=== PATIENT | female | born 1945 | race Caucasian/White ===

== ENCOUNTER 2024-10-03 16:46 | Inpatient (IN) | payer BC, OTHER ==
[~2024-10-03] VITALS: Ht 152.4 cm; Wt 42.5 kg
[~2024-10-03 16:46] MED LIST: ALEN70TA74 PO; HYDR25TA4 PO; LEVO88TA4 PO
--- NOTE | 2024-10-03 17:29 | ED.PDOC ---
History of Present Illness HPI Comments 79-year-old female presents via EMS with complaint of generalized weakness, today. Per EMS report, friends of the patient call on her behalf after finding her at her place of residence, endorsing on feeling weak and being unable to get up and walk, lately, in addition to be without food for the past 2 days. Patient was report to normally ambulatory. At time of assessment patient is still endorsing on weakness symptom in addition to having a delay response upon questioning. Patient has no reported urinary symptoms, fever, chills, shortness a breath, cough, or other associated symptoms or modifiers at this time. Vital signs were stable on arrival. 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 Past Medical History PAST MEDICAL HISTORY: Denies Surgical History: Denies all surgeries DISTRIBUTION CENTER MANAGER History: No Pertinent DISTRIBUTION CENTER MANAGER History Social History Smoker: Non-Smoker Alcohol: Denies ETOH Use Drugs: Denies Drug Use Lives In: Home Constitutional: reports: fatigue, malaise, weakness; denies: chills, diaphoresis, fever, sweats, others EENTM: denies: blurred vision, double vision, ear bleeding, ear discharge, ear drainage, ear pain, ear ringing, eye pain, eye redness, hearing loss, mouth pain, mouth swelling, nasal discharge, nose bleeding, nose congestion, nose pain, photophobia, tearing, throat pain, throat swelling, voice changes, others Respiratory: denies: cough, hemoptysis, orthopnea, SOB at rest, shortness of breath, SOB with excertion, stridor, wheezing, others Cardiovascular: denies: chest pain, dizzy spells, diaphoresis, Dyspnea on exertion, edema, irregular heart beat, left arm pain, lightheadedness, palpitations, PND, syncope, others Gastrointestinal: denies: abdomen distended, abdominal pain, blood streaked bowels, constipated, diarrhea, dysphagia, difficulty swallowing, hematemesis, melena, nausea, poor appetite, poor fluid intake, rectal bleeding, rectal pain, vomiting, others Genitourinary: denies: abnormal vagina bleeding, burning, dyspareunia, dysuria, flank pain, frequency, hematuria, incontinence, pain, , vagina discharge, urgency, others Neurological: reports: dizziness, weakness; denies: fainting, headache, left sided numbness, left sided weakness, numbness, paresthesia, pre-existing deficit, right sided numbness, right sided weakness, seizure, speech problems, tingling, tremors, others Musculoskeletal: denies: back pain, gout, joint pain, joint swelling, muscle pain, muscle stiffness, neck pain, others Integumetry: denies: bruises, change in color, change in hair/nails, dryness, laceration, lesions, lumps, rash, wounds, others Allergic/Immunocompromised: denies: Difficulty Healing, Frequent Infections, Hives, Itching, others Hematologic/Lymphatic: denies: anemia, blood clots, easy bleeding, easy bruising, swollen glands, others Endocrine: denies: excessive hunger, excessive sweating, excessive thirst, excessive urination, flushing, intolerance to cold, intolerance to heat, unexplained weight gain, unexplained weight loss, others Psychiatric: denies: anxiety, bipolar disorder, depression, hopeless, panic disorder, schizophrenia, sleepless, suicidal, others All Other Systems: Reviewed and Negative (Negative unless otherwise stated above or and HPI) Physical Exam General Appearance: Moderate Distress (Patient presents as a moderately ill 79-year-old female.), Normal HEENT: Normal ENT Inspection, Pharynx Normal, TMs Normal Neck: Full Range of Motion, Non-Tender, Normal, Normal Inspection Respiratory: Chest Non-Tender, Lungs Clear, No Accessory Muscle Use, No Respiratory Distress, Normal Breath Sounds Cardiovascular: No Edema, No JVD, No Murmur, No Gallop, Normal Peripheral Pulses, Regular Rate/Rhythm Breast Exam: Deferred Gastrointestinal: No Organomegaly, Non Tender, No Pulsatile Mass, Normal Bowel Sounds, Soft Genitalia: Deferred Pelvic: Deferred Rectal: Deferred Extremities: Other (Patient was unable to ambulate. No edema noted. No signs of trauma.) Neurologic: Disoriented, No Motor Deficits, No Sensory Deficits Cerebellar Function: NOT DONE Reflexes: NOT DONE Skin: Dry, Normal Color, Warm Lymphatic: No Adenopathy Was a procedure done? Was a procedure done?: No EKG EKG : Pulse Rate (adult): 84 [place]: Normal Cardiac Rhythm: NSR Block: None Hypertrophy: None ST: Normal Differential Dx Considerations may include: Anemia, electrolyte imbalance, dehydration, malnutrition, viral syndrome, degenerative disc disease X-Ray, Labs, Meds, VS Vital Signs Date Time Temp Pulse Resp B/P (MAP) Pulse Ox O2 Delivery O2 Flow Rate FiO2 10/03/24 21:00 94 16 108/58 (75) 96 10/03/24 19:30 Room Air* 0 21 10/03/24 19:30 97.7 86 16 104/68 (80) 96 97.7 10/03/24 18:00 97 17 102/49 (66) 98 10/03/24 17:30 88 21 98 Room Air* 0 21 10/03/24 17:29 84 10/03/24 17:25 97.8 88 21 113/58 (76) 97 97.8 10/03/24 17:01 97.7 98 16 122/65 (84) 98 10/03/24 16:59 84 Lab Test 10/03/24 21:26 10/03/24 20:34 10/03/24 18:53 10/03/24 17:31 Range/Units Urine Color Yellow Yellow Urine Clarity Clear Clear Urine pH 5.5 5.0-9.0 Urine Specific [place] 1.030 1.001-1.035 Urine Protein 1+ H Negative Urine Ketones 2+ H Negative Urine Blood Negative Negative /uL Urine Nitrite Negative Negative Urine Bilirubin Negative Negative Urine Urobilinogen Normal Negative mg/dL Urine Leukocyte Esterase Negative Negative /uL Urine RBC 1 0 - 4 /hpf Urine WBC 2 0 - 5 /hpf Urine Squamous Epithelial Cells Few <5 /hpf Urine Bacteria None seen None Seen /hpf Urine Mucus Few None Seen Urine Glucose 3+ H Normal mg/dL Troponin I High Sensitivity 47 *H 43 *H 43 *H </=34 ng/L White Blood Count 10.2 4.4-10.8 10^3/uL Red Blood Count 4.13 4.0-5.20 10^6/uL Hemoglobin 12.6 12.2-16.2 g/dL Hematocrit 37.6 36.0-46.0 % Mean Corpuscular Volume 90.9 80.0-100.0 fL Mean Corpuscular Hemoglobin 30.4 28.0-32.0 pg Mean Corpuscular Hemoglobin Concent 33.5 32.0-36.0 g/dL Red Cell Distribution Width 13.9 11.8-14.3 % Platelet Count 293 140-450 10^3/uL Mean Platelet Volume 7.2 6.9-10.8 fL Neutrophils (%) (Auto) 86.7 H 37.0-80.0 % Lymphocytes (%) (Auto) 7.5 L 10.0-50.0 % Monocytes (%) (Auto) 5.6 0.0-12.0 % Eosinophils (%) (Auto) 0.0 0.0-7.0 % Basophils (%) (Auto) 0.2 0.0-2.0 % Neutrophils # (Auto) 8.8 H 1.6-8.6 10 ^3/uL Lymphocytes # (Auto) 0.8 0.4-5.4 10 ^3/uL Monocytes # (Auto) 0.6 0-1.3 10 ^3/uL Eosinophils # (Auto) 0 0-0.8 10 ^3/uL Basophils # (Auto) 0 0-0.2 10 ^3/uL Nucleated Red Blood Cells 0.0 % Prothrombin Time 10.9 9.3-11.8 sec Prothrombin Time INR 1.03 0.9-1.15 Activated Partial Thromboplast Time 26.4 24.5-34.5 SEC D-Dimer, Quantitative 0.57 H 0.0-0.49 mg/L FEU Sodium Level 144 136-145 mmol/L Potassium Level 3.5 3.5-5.1 mmol/L Chloride Level 107 98-107 mmol/L Carbon Dioxide Level 27 20-31 mmol/L Anion Gap 10 5-15 Blood Urea Nitrogen 28 H 9-23 mg/dL Creatinine 0.71 0.550-1.02 mg/dL Glomerular Filtration Rate Calc 87 >90 mL/min BUN/Creatinine Ratio 39.4 H 10.0-20.0 Serum Glucose 90 74-106 mg/dL Calcium Level 10.7 H 8.7-10.4 mg/dL Magnesium Level 1.9 1.6-2.6 mg/dL Total Bilirubin 0.6 0.2-1.0 mg/dL Aspartate Amino Transferase (AST) 143 H 13-40 U/L Alanine Aminotransferase (ALT) 95 H 7-40 U/L Alkaline Phosphatase 81 46-116 U/L B-Type Natriuretic Peptide 88.68 0-100 pg/mL Total Protein 5.8 5.7-8.2 g/dL Albumin 3.9 3.2-4.8 g/dL Current Medications Medications (Trade) Dose Ordered Sig/Hayley Route Start Time Stop Time Status Last Admin Sodium Chloride 1,000 ml @ 150 mls/hr Q6H40M ONCE IV 10/03/24 17:15 10/03/24 23:54 10/03/24 17:49 X-Ray, Labs, Meds, VS Comment All studies performed the ED were evaluated by me personally. Imaging studies were unremarkable for any consolidation or intrapulmonary concerns. Laboratories were remarkable for an elevated troponin and EKG revealed a sinus rhythm with a rate of 84, right atrial enlargement, incomplete right bundle- branch block and repolarization abnormalities suggestive of ischemia in the lateral leads. [place] interval of 147 and a QT interval of 404. This patient will be admitted for acute coronary syndrome management and lower acquire a cardiac consultation tomorrow. Time of 1ST Reevaluation: 23:06 Reevaluation 1ST: Unchanged Consultation: PCP Patient Education/Counseling: Diagnosis, Treatment Family Education/Counseling: Diagnosis, Treatment, No Family Present Departure 1 Departure Time of Disposition: 23:07 Impression: Primary Impression: Acute coronary syndrome Additional Impressions: Generalized weakness Risk for falls Disposition: ADMITTED INPATIENT Condition: Stable Discharged With: Self Critical Care Note Critical Care Time?: No Stability Stability form required: No Heart Score Heart Score: Heart Score Response (Comments) Value History Slightly Suspicious 0 EKG Repolarization Disturb 1 Age >65 2 Risk Factors No known risk factors 0 Troponin 1-2 x's Normal limit 1 Total 4 I personally scribed for VAIBHAV LAW PAC ([email or web address]) on 10/03/24 at 17:28. Electronically submitted by Jewel Bianchi ([email or web address]). VAIBHAV LAW PAC Oct 03, 2024 17:28
[2024-10-03 17:30] VITALS: PULSE 88; RESP 21; O2SAT 98
--- NOTE | 2024-10-03 17:45 | DVH ---
CHEST RADIOGRAPH Indication: Shortness of breath Technique: Single frontal view of the chest was obtained Comparison: None FINDINGS: Lines and Tubes: None Lungs: Hyperinflation Pleura: No effusion. No pneumothorax. Cardiomediastinal contours: Unremarkable Bones: No acute osseous abnormality. IMPRESSION: 1. No acute cardiopulmonary disease. 2. Hyperinflation
[2024-10-03] MEDS: SODIUM CHLORIDE 0.9% 1,000 ML IV ONE (17:49)
[2024-10-03 18:05] LABS: Basophils # (auto) 0 10 ^3/uL (0-0.2); Basophils % (auto) 0.2 % (0.0-2.0); Eosinophils # (auto) 0 10 ^3/uL (0-0.8); Hematocrit 37.6 % (36.0-46.0); Hemoglobin 12.6 g/dL (12.2-16.2); Lymphocytes # (auto) 0.8 10 ^3/uL (0.4-5.4); Lymphocytes % (auto) 7.5 % (10.0-50.0); Mean Corpuscular Hemoglobin 30.4 pg (28.0-32.0); Mean Corpuscular Hgb Conc. 33.5 g/dL (32.0-36.0); Mean Corpuscular Volume 90.9 fL (80.0-100.0); Monocytes # (auto) 0.6 10 ^3/uL (0-1.3); Monocytes % (auto) 5.6 % (0.0-12.0); Neutrophils # (auto) 8.8 10 ^3/uL (1.6-8.6); Neutrophils % (auto) 86.7 % (37.0-80.0); Platelet Count (auto) 293 10^3/uL (140-450); Red Blood Cells 4.13 10^6/uL (4.0-5.20); Red Cell Distribution Width 13.9 % (11.8-14.3); White Blood Cell 10.2 10^3/uL (4.4-10.8)
[2024-10-03 18:20] LABS: Albumin 3.9 g/dL (3.2-4.8); Alkaline Phosphatase 81 U/L (46-116); Anion Gap 10 (5-15); BUN/Creatinine Ratio 39.4 (10.0-20.0); Bilirubin, Total 0.6 mg/dL (0.2-1.0); Carbon Dioxide 27 mmol/L (20-31); Chloride 107 mmol/L (98-107); Glucose 90 mg/dL (74-106); INR 1.03 (0.9-1.15); Magnesium 1.9 mg/dL (1.6-2.6); Partial Thromboplastin Time 26.4 SEC (24.5-34.5); Prothrombin Time 10.9 sec (9.3-11.8); Sodium 144 mmol/L (136-145); Total Protein 5.8 g/dL (5.7-8.2)
[2024-10-03 18:24] LABS: Alanine Aminotransferase 95 U/L (7-40); Aspartate Aminotransferase 143 U/L (13-40); Blood Urea Nitrogen 28 mg/dL (9-23); Calcium 10.7 mg/dL (8.7-10.4); Potassium 3.5 mmol/L (3.5-5.1)
--- NOTE | 2024-10-03 20:51 | ECG ---
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
[2024-10-03 22:34] LABS: Urine Bacteria None Seen /hpf (None Seen)
[2024-10-03 22:44] LABS: Urine Blood Negative /uL (Negative); Urine Clarity Clear (Clear); Urine Color Yellow (Yellow); Urine Mucus FEW (None Seen); Urine Protein, UAD 1+ (Negative); Urine Squamous Epithelial Cell FEW /hpf (<5); Urine Urobilinogen Normal (Negative); Urine WBC 2 /hpf (0 - 5); Urine pH 5.5 (5.0-9.0)
[2024-10-04] MEDS ORDERED: ONDANSETRON HCL 4 MG/2 ML VIAL IV PRN (01:15)
[2024-10-04] MEDS ORDERED: ACETAMINOPHEN 325 MG TAB PO PRN (01:15)
[2024-10-04] MEDS ORDERED: DOCUSATE SOD 100 MG CAP PO PRN (01:15)
[2024-10-04] MEDS ORDERED: IBUPROFEN 600 MG TAB PO PRN (01:15)
[2024-10-04] MEDS ORDERED: HYDROcodone-ACET 5/325MG TAB PO PRN (01:15)
[2024-10-04] MEDS: ASPirin 81 mg TAB PO ONE (01:22)
--- NOTE | 2024-10-04 01:27 | DVHHP2 ---
History of Present Illness Reason for Visit: Generalized weakness History of Present Illness The patient is a 79-year-old female who denies past medical history presented to [facility] ED for evaluation of generalized weakness. As reported, patient's friend called EMS reporting change in patient's condition, unable to get up, walk, progressive weakness, getting worse that prompted this visit. Patient was seen and evaluated in the ED, laboratory data shows WBC 10.2, platelets 293, sodium 144, potassium 3.5, BUN 28, creatinine 0.71, GFR 87, glucose 90, AST 143, ALT 95, BNP 88.68, D-dimer 0.57, troponin 47. Head CT shows no acute intrathoracic abnormality. Patient was given aspirin 162 mg p.o. x1, please see medication orders section in the computer. On my assessment, patient denies chest pain, no headache, no dizziness, no diaphoresis, no shortness of breaths, no nausea, no vomiting, no fever, no chills. Patient was admitted for further evaluation and medical management. Past Medical History Denies past medical history Past Surgical History Denies all surgeries Family History Reviewed, noncontributory to the management of this case. Past Social History The patient lives at home, denies smoking, alcohol or illicit drugs abuse. Review of Systems Constitutional: Yes: Weakness, Malaise, Other (Fatigue); No: Fever, Chills, Sweats Eyes: No: Pain, Vision change, Conjunctivae inflammation, Eyelid inflammation, Other, Redness ENT: No: Ear pain, Ear discharge, Nose pain, Nose discharge, Nose congestion, Mouth pain, Mouth swelling, Throat pain, Throat swelling, Other Respiratory: No: Cough, Dry, Shortness of breath, SOB with excertion, Wheezing, Hemoptysis, Pleuritic Pain, Sputum, Wheezing, Other Cardiovascular: No: Chest Pain, Palpitations, Orthopnea, Paroxysmal Noc. Dyspnea, Edema, Lt Headedness, Other Gastrointestinal: No: Nausea, Vomiting, Abdominal Pain, Diarrhea, Constipation, Melena, Hematochezia, Other Genitourinary: No Dysuria, No Frequency, No Incontinence, No Hematuria, No Retention, No Other Musculoskeletal: No: other, neck pain, shoulder pain, arm pain, back pain, hand pain, leg pain, foot pain Skin: No: Rash, Lesions, Jaundice, Bruising, Other Neurological: Weakness, Other (Dizziness); No: Numbness, Incoordination, Change in speech, Confusion, Seizures Allergies: Coded Allergies: Amoxicillin (Verified Allergy, Unknown, 10/03/24) Penicillins (Verified Allergy, Unknown, 10/03/24) Sulfa Antibiotics (Verified Allergy, Unknown, 10/03/24) Medications Current Medications Medications Dose Ordered Sig/Hayley Route Start Time Stop Time Status Last Admin Dose Admin Ibuprofen 600 mg Q6HP PRN PO 10/04/24 01:15 UNV Aspirin 81 mg DAILY PO 10/04/24 10:00 Sodium Chloride 10 ml Q8HR IV 10/04/24 06:00 Acetaminophen/ Hydrocodone Bitart 1 tab Q4HP PRN PO 10/04/24 01:15 Ondansetron HCl 4 mg Q4HP PRN IV 10/04/24 01:15 Docusate Sodium 100 mg BIDPRN PRN PO 10/04/24 01:15 Acetaminophen 650 mg Q6HP PRN PO 10/04/24 01:15 Levothyroxine Sodium 88 mcg QAM@0600 PO 10/04/24 06:00 Exam Vital Signs Vital Signs Date Time Temp Pulse Resp B/P (MAP) Pulse Ox O2 Delivery O2 Flow Rate FiO2 10/03/24 23:00 91 14 112/46 (68) 96 10/03/24 19:30 Room Air* 0 21 10/03/24 19:30 97.7 97.7 General Appearance: Alert, Oriented X3, Cooperative, No acute distress HEENT: Atraumatic, PERRLA, EOMI, Mucous membr. moist/pink Respiratory: Clear to auscultation, Normal air movement Cardiovascular: Regular rate, Normal S1, Normal S2, No murmurs Abdominal: Normal bowel sounds, Soft, No tenderness, No hepatospenomegaly, No masses Extremities: No clubbing, No cyanosis, No edema, Normal pulses, No tenderness/swelling Skin: No rashes, No breakdown, No significant lesion Neuro: Normal speech, Normal tone, Sensation intact, Cranial nerves 3-12 NL, Reflexes 2+, Other (Generalized weakness) Psych/Mental Status: Mental status NL, Mood NL Labs/Xrays Labs Test 10/03/24 21:26 10/03/24 20:34 10/03/24 17:31 Range/Units Urine Color Yellow Yellow Urine Clarity Clear Clear Urine pH 5.5 5.0-9.0 Urine Specific [place] 1.030 1.001-1.035 Urine Protein 1+ H Negative Urine Ketones 2+ H Negative Urine Blood Negative Negative /uL Urine Nitrite Negative Negative Urine Bilirubin Negative Negative Urine Urobilinogen Normal Negative mg/dL Urine Leukocyte Esterase Negative Negative /uL Urine RBC 1 0 - 4 /hpf Urine WBC 2 0 - 5 /hpf Urine Squamous Epithelial Cells Few <5 /hpf Urine Bacteria None seen None Seen /hpf Urine Mucus Few None Seen Urine Glucose 3+ H Normal mg/dL Troponin I High Sensitivity 47 *H </=34 ng/L White Blood Count 10.2 4.4-10.8 10^3/uL Red Blood Count 4.13 4.0-5.20 10^6/uL Hemoglobin 12.6 12.2-16.2 g/dL Hematocrit 37.6 36.0-46.0 % Mean Corpuscular Volume 90.9 80.0-100.0 fL Mean Corpuscular Hemoglobin 30.4 28.0-32.0 pg Mean Corpuscular Hemoglobin Concent 33.5 32.0-36.0 g/dL Red Cell Distribution Width 13.9 11.8-14.3 % Platelet Count 293 140-450 10^3/uL Mean Platelet Volume 7.2 6.9-10.8 fL Neutrophils (%) (Auto) 86.7 H 37.0-80.0 % Lymphocytes (%) (Auto) 7.5 L 10.0-50.0 % Monocytes (%) (Auto) 5.6 0.0-12.0 % Eosinophils (%) (Auto) 0.0 0.0-7.0 % Basophils (%) (Auto) 0.2 0.0-2.0 % Neutrophils # (Auto) 8.8 H 1.6-8.6 10 ^3/uL Lymphocytes # (Auto) 0.8 0.4-5.4 10 ^3/uL Monocytes # (Auto) 0.6 0-1.3 10 ^3/uL Eosinophils # (Auto) 0 0-0.8 10 ^3/uL Basophils # (Auto) 0 0-0.2 10 ^3/uL Nucleated Red Blood Cells 0.0 % Prothrombin Time 10.9 9.3-11.8 sec Prothrombin Time INR 1.03 0.9-1.15 Activated Partial Thromboplast Time 26.4 24.5-34.5 SEC D-Dimer, Quantitative 0.57 H 0.0-0.49 mg/L FEU Sodium Level 144 136-145 mmol/L Potassium Level 3.5 3.5-5.1 mmol/L Chloride Level 107 98-107 mmol/L Carbon Dioxide Level 27 20-31 mmol/L Anion Gap 10 5-15 Blood Urea Nitrogen 28 H 9-23 mg/dL Creatinine 0.71 0.550-1.02 mg/dL Glomerular Filtration Rate Calc 87 >90 mL/min BUN/Creatinine Ratio 39.4 H 10.0-20.0 Serum Glucose 90 74-106 mg/dL Calcium Level 10.7 H 8.7-10.4 mg/dL Magnesium Level 1.9 1.6-2.6 mg/dL Total Bilirubin 0.6 0.2-1.0 mg/dL Aspartate Amino Transferase (AST) 143 H 13-40 U/L Alanine Aminotransferase (ALT) 95 H 7-40 U/L Alkaline Phosphatase 81 46-116 U/L B-Type Natriuretic Peptide 88.68 0-100 pg/mL Total Protein 5.8 5.7-8.2 g/dL Albumin 3.9 3.2-4.8 g/dL PATIENT: BRIAN DUMONT ACCT: [id number] UNIT: [id number] : 1945 LOC: [facility] ROOM / BED: [address] [place] [address] AGE / SEX: 79 / F ADM STATUS: ADM IN SERVICE 2 ORDERING PHYSICIAN: JUAN RAMON JENKINS DNP PROCEDURE(s): CX2CT - CHEST WITHOUT CONTRAST REASON: Elevated D-dimer ORDER NUMBER(s): [id number], ACCESSION NUMBER(s): [id number] Procedure: CT CHEST WITHOUT CONTRAST Reason for study/Clinical History: Elevated D-dimer Comparison Study: None available at time of dictation. Exam Date: 10/04/2024 01:32 AM TECHNIQUE: Multidetector CT of the chest was performed from the lung apices to the upper abdomen without the use of intravenous contract. Axial, coronal and sagittal multiplanar reformats were performed. Radiation Dose Information: CT Dose: CTDI volume is 4.6 mGy. Dose-length product is 186 mGy*cm The dose indicators for CT are the volume Computed Tomography (CT) Dose Index (CTDIvol) and the Dose Length Product (DLP), and are measured in units of mGy and mGy-cm, respectively. These indicators are not patient dose, but values generated from the CT scanner acquisition factors. The report includes radiation exposure data for exposures received during this examination. FINDINGS: Lower neck: Normal thyroid. Lungs: No focal consolidation, pleural effusion or pneumothorax. Heart/Vascular Structures: Normal heart size. No pericardial effusion. Lymph Nodes: No adenopathy Pleura: No pleural effusion or significant pneumothorax. Musculoskeletal: No acute osseous abnormality. Soft tissues: Normal. Upper abdomen: Limited portions of the upper abdomen are unremarkable. IMPRESSION: 1. No acute intrathoracic abnormality. ORDERING PHYSICIAN: VAIBHAV LAW PAC PROCEDURE(s): CXRP - CHEST PORTABLE REASON: Shortness of breath ORDER NUMBER(s): [id number], ACCESSION NUMBER(s): [id number] CHEST RADIOGRAPH Indication: Shortness of breath Technique: Single frontal view of the chest was obtained Comparison: None FINDINGS: Lines and Tubes: None Lungs: Hyperinflation Pleura: No effusion. No pneumothorax. Cardiomediastinal contours: Unremarkable Bones: No acute osseous abnormality. IMPRESSION: 1. No acute cardiopulmonary disease. 2. Hyperinflation Assessment/Plan Assessment/Plan Acute coronary syndrome Generalized weakness Risk for falls Elevated D-dimer Elevated liver enzymes Plan 1. Admit to telemetry unit 2. Breathing treatment 3. Pain control management 4. Management of fluids and electrolytes 5. Consultation for hospitalist 6. Diagnostic tests chest x-ray 7. DVT prophylaxis-on aspirin 8. Repeat labs CBC, CMP in a.m. 9. Continue with current medical management 10. Treatment plan discussed with patient and RN. Patient verbalized understanding. Plan discussed with: Patient, Other (RN) My Orders Orders - JUAN RAMON JENKINS DNP Procedure Category Date Status Time Complete Blood Count LAB 10/04/24 Logged 04:00 Comprehensive LAB 10/04/24 Logged Metabolic Panel 04:00 Ibuprofen Tablet PHA 10/04/24 Pending (Motrin Tablet) 01:15 Aspirin Tablet PHA 10/04/24 In Process 10:[address] 10/04/24 Logged 01:03 Allergies JIHAN 10/04/24 In Process 01:03 Code Status CODE 10/04/24 Transmitted 01:03 Sodium Chloride Lock PHA 10/04/24 In Process (Saline Lock Ns) 06:00 Oxygen Per Hour RT 10/04/24 Transmitted 01:03 Hydrocodone-Acet PHA 10/04/24 In Process 5/325mg Tab ([place] 01:15 Ondansetron Hcl PHA 10/04/24 In Process (Zofran) 01:15 Docusate Sodium PHA 10/04/24 In Process Capsule (Colace 01:15 Fall Risk Precautions JIHAN 10/04/[address] 01:03 Complete Blood Count LAB 10/05/24 Verified 04:00 Comprehensive LAB 10/05/24 Verified Metabolic Panel 04:00 Cardiac DIET 10/04/24 Transmitted Diet-2gna,Lofat,Lochol Breakfast Condition: Serious JIHAN 10/04/24 In Process 01:03 Acetaminophen Tablet PHA 10/04/24 In Process (Tylenol Tablet) 01:15 Sequential JIHAN 10/04/24 In Process Compression Device Thyroid Stimulating LAB 10/04/24 Logged Hormone 01:03 Levothyroxine Tablet PHA 10/04/24 In Process (Synthroid Tablet) 06:00 Admit ADMIT 10/04/24 Transmitted 01:25 Nitroglycerin PHA 10/04/24 Transmitted Sublingual (Ntrostat 01:30 Morphine Sulfate PHA 10/04/24 Transmitted Injection 01:30 Notify Of Changes JIHAN 10/04/24 Transmitted From Base 01:25 Post Acute Care Nurse Practitioner For [facility] 10/04/24 Transmitted 24 Hours 01:25 Emergency Dysrhythmia JIHAN 10/04/24 Transmitted Protocol 01:25 Rhythm Strips Once JIHAN 10/04/24 Transmitted Every Shift 01:25 Oxygen By Nasal RT 10/04/24 Transmitted Cannula 01:25 Problem List: (1) Acute coronary syndrome (2) Generalized weakness (3) Risk for falls (4) Elevated d-dimer (5) Elevated liver enzymes Date of Service: Oct 04, 2024 Billing Provider: JUAN RAMON JENKINS DNP Common Visit Codes: [id number] INP/OBS CARE (HIGH) JUAN RAMON JENKINS DNP Oct 04, 2024 01:27
[2024-10-04] MEDS ORDERED: NITROGLYCERIN 0.4 MG SL TAB SL PRN (01:30)
[2024-10-04] MEDS ORDERED: MORPHINE SULFATE INJ 2 MG/ml SYRG IV PRN (01:30)
--- NOTE | 2024-10-04 01:52 | DVH ---
Procedure: CT CHEST WITHOUT CONTRAST Reason for study/Clinical History: Elevated D-dimer Comparison Study: None available at time of dictation. Exam Date: 10/04/2024 01:32 AM TECHNIQUE: Multidetector CT of the chest was performed from the lung apices to the upper abdomen with out the use of intravenous contract. Axial, coronal and sagittal multiplanar reformats were performed . Radiation Dose Information: CT Dose: CTDI volume is 4.6 mGy. Dose-length product is 186 mGy*cm The dose indicators for CT are the volume Computed Tomography (CT) Dose Index (CTDIvol) and the Dose Length Product (DLP), and are measured in units of mGy and mGy-cm, respectively. These indicators are not patient dose, but values generated from the CT scanner acquisition factors. The report includes radiation exposure data for exposures received during this examination. FINDINGS: Lower neck: Normal thyroid. Lungs: No focal consolidation, pleural effusion or pneumothorax. Heart/Vascular Structures: Normal heart size. No pericardial effusion. Lymph Nodes: No adenopathy Pleura: No pleural effusion or significant pneumothorax. Musculoskeletal: No acute osseous abnormality. Soft tissues: Normal. Upper abdomen: Limited portions of the upper abdomen are unremarkable. IMPRESSION: 1. No acute intrathoracic abnormality. Radiation optimization: All CT scans at this facility use at least one of these dose optimization vivienne hniques: automated exposure control mA and/or kV adjustment per patient size (includes targeted exam s where dose is matched to clinical indication) or iterative reconstruction.
[2024-10-04] MEDS: SODIUM CHLOR 0.9% PF (SALINE LOCK) 10ML VIAL/SYR IV SCH (05:48)
[2024-10-04] MEDS: LEVOTHYROXINE SODIUM 88 MCG TAB PO SCH (05:48)
[2024-10-04 06:22] LABS: Basophils # (auto) 0 10 ^3/uL (0-0.2); Basophils % (auto) 0.5 % (0.0-2.0); Eosinophils # (auto) 0 10 ^3/uL (0-0.8); Eosinophils % (auto) 0.1 % (0.0-7.0); Hematocrit 36.4 % (36.0-46.0); Hemoglobin 12.1 g/dL (12.2-16.2); Lymphocytes # (auto) 0.7 10 ^3/uL (0.4-5.4); Lymphocytes % (auto) 8.3 % (10.0-50.0); Mean Corpuscular Hemoglobin 30.6 pg (28.0-32.0); Mean Corpuscular Hgb Conc. 33.2 g/dL (32.0-36.0); Mean Corpuscular Volume 92.3 fL (80.0-100.0); Monocytes # (auto) 0.3 10 ^3/uL (0-1.3); Monocytes % (auto) 3.8 % (0.0-12.0); Neutrophils # (auto) 7.7 10 ^3/uL (1.6-8.6); Neutrophils % (auto) 87.3 % (37.0-80.0); Platelet Count (auto) 274 10^3/uL (140-450); Red Blood Cells 3.94 10^6/uL (4.0-5.20); Red Cell Distribution Width 13.9 % (11.8-14.3); White Blood Cell 8.8 10^3/uL (4.4-10.8)
[2024-10-04 06:46] LABS: Albumin 3.7 g/dL (3.2-4.8); Alkaline Phosphatase 75 U/L (46-116); Anion Gap 14 (5-15); BUN/Creatinine Ratio 38.6 (10.0-20.0); Calcium 9.9 mg/dL (8.7-10.4); Carbon Dioxide 22 mmol/L (20-31)
[2024-10-04 06:47] LABS: Bilirubin, Total 0.7 mg/dL (0.2-1.0); Total Protein 5.8 g/dL (5.7-8.2)
[2024-10-04 07:02] LABS: Alanine Aminotransferase 88 U/L (7-40); Aspartate Aminotransferase 126 U/L (13-40); Blood Urea Nitrogen 27 mg/dL (9-23); Chloride 110 mmol/L (98-107); Glucose 56 mg/dL (74-106); Potassium 3.3 mmol/L (3.5-5.1); Sodium 146 mmol/L (136-145)
[2024-10-04 07:32] VITALS: PULSE 91; O2SAT 97
[2024-10-04] MEDS ORDERED: DEXTROSE (50%) 50ML SYRG IV PRN (10:15)
[2024-10-04] MEDS: ASPirin 81 mg TAB PO SCH (10:51)
--- NOTE | 2024-10-04 11:11 | DVH ---
INDICATION: LFTs high, RUQ U/S to eval liver TECHNIQUE: Multiple real-time sonographic images were obtained of the right upper quadrant. COMPARISON: None FINDINGS: The liver demonstrates homogeneous echotexture without focal mass lesions. The liver measu res 10.2 cm. There is no intrahepatic or extrahepatic ductal dilatation. The common duct is not visualized. Cholelithiasis. The gallbladder wall measures 0.1 cm and is within normal limits. The right kidney measures 9.4 cm. The right kidney is normal in contour, size, and shape. The echog enicity is normal. There is no hydronephrosis. Mild right renal pelvic fullness. The pancreas is not well visualized due to overlying bowel gas. IMPRESSION: Cholelithiasis. Mild right renal pelvic fullness; nonspecific.
[2024-10-04] MEDS: ACCU-CHEK COMFORT CURVE STRIP VI SCH (11:50)
[2024-10-04] MEDS: LEVOTHYROXINE SODIUM 88 MCG TAB PO ONE (11:58)
[2024-10-04] MEDS: LACTATED RINGER'S 400 ML IV ONE (12:08)
--- NOTE | 2024-10-04 13:19 | DVH ---
EXAM: CT HEAD WITHOUT CONTRAST HISTORY: head trauma, weakness COMPARISON: CT CHEST WITHOUT CONTRAST on DOS: 10/04/24 TECHNIQUE: Axial images were obtained and reformatted in coronal and sagittal planes. All CT scans at this medical facility are performed using dose modulation techniques as appropriate t o a performed exam including the following: Automated exposure control was utilized; adjustment of th e MA and/or KV according to patient size; and use of iterative reconstruction technique. CT Dose: CTDI volume is 53.92 mGy. Dose-length product is 1081.91 mGy*cm FINDINGS: Supratentorial Region: No evidence for large acute territorial ischemia. No intracranial hemorrhage is noted. A 0.9 cm focus of cystic encephalomalacia noted in the right lentiform nucleus Posterior Fossa: No acute abnormality. Brainstem: Unremarkable. Sellar/Suprasellar Region: Unremarkable. Ventricles, Cisterns, Sulci: Mildly prominent reflecting volume loss. Orbits: Unremarkable. Paranasal Sinuses: Unremarkable. Mastoid Air Cells: Unremarkable. Vasculature: Intracranial arterial calcified plaque formation noted. Bones/Soft Tissues: No acute abnormality. Other: None. IMPRESSION: 1. No CT evidence of acute intracranial abnormality.
[2024-10-04 13:41] LABS: COVID19 ANTIGEN SOFIA FIA NEGATIVE (NEGATIVE)
[2024-10-04 13:44] LABS: Rapid Influenza A Negative (Negative); Rapid Influenza B Negative (Negative)
[2024-10-04 13:45] VITALS: BP 96/48; PULSE 83; RESP 16; TEMP 97.5; O2SAT 96
--- NOTE | 2024-10-04 16:19 | DVHPN2 ---
Subjective 10/04-patient doing better, improving. Patient did also have a fall, she has a wound on left frontal cranium region. She declines any loss of consciousness. Unclear cause of fall. Reviewed: H&P Changes from previous H/P or p: No Changes General: Per HPI Objective Vitals Vital Signs Date Time Temp Pulse Resp B/P (MAP) Pulse Ox O2 Delivery O2 Flow Rate FiO2 10/04/24 13:45 97.5 83 16 96/48 (64) 96 97.5 10/04/24 07:32 Room Air* 0 31 21 Intake/Output Intake and Output 10/04/24 07:00 Intake Total 600 ml Balance 600 ml Intake IV Total 600 ml Exam GEN: Severely cachectic, malnutrition and appearing. HEENT: Has laceration to left frontal cranium. dry mucous membranes CV: RRR, no m/r/g. LUNGS: CTAB, no w/r/c. ABD: Soft, NT/ND, NBS, no masses or organomegaly. EXT: skin Warm, well perfused. no rashes. No clubbing, cyanosis, or edema. NEURO: Ambulating with no limitations. No focal deficits. Alert and oriented times 3-4 Medications Current Medications Medications Dose Ordered Sig/Hayley Route Start Time Stop Time Status Last Admin Dose Admin Ibuprofen 600 mg Q6HP PRN PO 10/04/24 01:15 Aspirin 81 mg DAILY PO 10/04/24 10:00 10/04/24 10:51 81 MG Sodium Chloride 10 ml Q8HR IV 10/04/24 06:00 10/04/24 05:48 10 ML Acetaminophen/ Hydrocodone Bitart 1 tab Q4HP PRN PO 10/04/24 01:15 Ondansetron HCl 4 mg Q4HP PRN IV 10/04/24 01:15 Docusate Sodium 100 mg BIDPRN PRN PO 10/04/24 01:15 Acetaminophen 650 mg Q6HP PRN PO 10/04/24 01:15 Nitroglycerin 0.4 mg Q5MINP PRN SL 10/04/24 01:30 Morphine Sulfate 2 mg Q30M PRN IV 10/04/24 01:30 Diagnostic Test (Pha) 1 strip IQ4HR 10/04/24 12:00 10/05/24 11:00 10/04/24 11:50 1 STRIP Dextrose 50 ml UD PRN IV 10/04/24 10:15 Levothyroxine Sodium 88 mcg QAM@0600 PO 10/05/24 06:00 Enteral Nutritional Formula 240 ml BIDWM PO 10/04/24 18:00 UNV Laboratory Results Laboratory Tests 10/04/24 06:04 Chemistry Test 10/03/24 17:31 10/04/24 06:04 Albumin 3.9 g/dL (3.2-4.8) 3.7 g/dL (3.2-4.8) Calcium Level 10.7 mg/dL (8.7-10.4) H 9.9 mg/dL (8.7-10.4) Magnesium Level 1.9 mg/dL (1.6-2.6) Total Protein 5.8 g/dL (5.7-8.2) 5.8 g/dL (5.7-8.2) Coagulation Test 10/03/24 17:31 Prothrombin Time 10.9 sec (9.3-11.8) Prothrombin Time INR 1.03 (0.9-1.15) Activated Partial Thromboplast Time 26.4 SEC (24.5-34.5) D-Dimer, Quantitative 0.57 mg/L FEU (0.0-0.49) H Cardiac Markers Test 10/03/24 17:31 B-Type Natriuretic Peptide 88.68 pg/mL (0-100) LFT Test 10/03/24 17:31 10/04/24 06:04 Alanine Aminotransferase (ALT) 95 U/L (7-40) H 88 U/L (7-40) H Alkaline Phosphatase 81 U/L (46-116) 75 U/L (46-116) Aspartate Amino Transferase (AST) 143 U/L (13-40) H 126 U/L (13-40) H Total Bilirubin 0.6 mg/dL (0.2-1.0) 0.7 mg/dL (0.2-1.0) HgA1c, TSH Test 10/04/24 06:04 Thyroid Stimulating Hormone (TSH) 8.35 uIU/mL (0.55-4.78) H Urinalysis Test 10/03/24 21:26 Urine Color Yellow (Yellow) Urine Clarity Clear (Clear) Urine pH 5.5 (5.0-9.0) Urine Specific [place] 1.030 (1.001-1.035) Urine Protein 1+ (Negative) H Urine Ketones 2+ (Negative) H Urine Blood Negative /uL (Negative) Urine Nitrite Negative (Negative) Urine Bilirubin Negative (Negative) Urine Urobilinogen Normal mg/dL (Negative) Urine Leukocyte Esterase Negative /uL (Negative) Urine RBC 1 /hpf (0 - 4) Urine WBC 2 /hpf (0 - 5) Urine Squamous Epithelial Cells Few /hpf (<5) Urine Bacteria None seen /hpf (None Seen) Urine Mucus Few (None Seen) Urine Glucose 3+ mg/dL (Normal) H Labs and/or images reviewed: Labs reviewed by me, Image(s) reviewed by me Assessment/Plan Assessment/Plan # Severe malnutrition, protein calorie deficit- consult dietitian, start high- protein supplements with meals b.i.d.. # Physical deconditioning - PT eval # decreased p.o. intake/intravascular volume depletion SG 1.030 on UA, has ketones +2. Patient endorses decreased p.o. intake. We will likely need appetite stimulant, we will start mirtazapine. # Weakness - pending B12, orthostatics signs, # risk of refeeding syndrome.- we will monitor Mag phos BMP daily # Head trauma, ruled out intracranial bleed CT head negative for intracranial bleed. # Hypoglycemia, resolved-on 10/04 noting blood glucose low in 50s. We will continue a.c. HS Accu-Cheks to keep blood glucose more than 90 #transaminitis RUQ U/S is negative for acute process, positive for cholelithiasis, might right renal pelvis fullness. No hepatomegaly no hepato steatosis. Unclear cause of transaminitis. Pending acute viral hepatitis panel # NSTEMI, unclear type 1 versus type 2 - likely type 2, no cardiac history. no chest pain. Defer echo to Cardiology # ACS rule out-patient never had chest pain. NSTEMI likely type 2. We will c onsult Cardiology as patient was admitted as ACS rule out. ACS unlikely. Continue aspirin 81 daily # History of hypothyroidism - continue home dose Synthroid 88 mcg. TSH elevated, free T4 pending # Chronic Hypertension-patient takes antihypertensives at home, we will hold off BP meds is at goal without medications. Diet regular, high-protein supplement with meals b.i.d. DVT prophylaxis Lovenox subQ daily GI prophylaxis tolerating diet Med tele Full code Plan discussed with: Patient My Orders Orders - DION JARRETT MD Procedure Category Date Status Time Acute Hepatitis Panel LAB 10/04/24 In Process 09:59 Abdomen Limited US 10/04/24 Resulted 09:59 Free T4 (Free LAB 10/04/24 Logged Thyroxine) 10:08 Glucose Blood PHA 10/04/24 In Process (Accu-Chek Comfort 12:00 Dextrose 50% Syringe PHA 10/04/24 In Process 10:[address] 10/04/24 Resulted 11:20 Pt Request For Service PT 10/04/24 Logged 11:20 Levothyroxine Tablet PHA 10/05/24 In Process (Synthroid Tablet) 06:00 Nutritional PHA 10/04/24 Logged Supplements (Ensure 18:00 Orthostatic Vital ORDERS 10/04/24 Transmitted Signs 15:56 Vitamin B12 LAB 10/05/24 Verified 04:00 Complete Blood Count LAB 10/05/24 Verified 04:00 Comprehensive LAB 10/05/24 Verified Metabolic Panel 04:00 Multiple Vitamin PHA 10/04/24 Logged Tablet (Mvi Tab) 16:00 Multiple Vitamin PHA 10/05/24 Logged Tablet (Mvi Tab) 10:00 Magnesium LAB 10/05/24 Verified 04:00 Phosphorus LAB 10/05/24 Verified 04:00 Date of Service: Oct 04, 2024 Billing Provider: DION JARRETT MD Common Visit Codes: [id number] INP/OBS CARE(HIGH) DION JARRETT MD Oct 04, 2024 16:19
[2024-10-04 17:00] VITALS: BP 118/57; PULSE 99; RESP 17; TEMP 98.1; O2SAT 97
[2024-10-04] MEDS: MULTIPLE VITAMIN TAB PO ONE (17:22)
[2024-10-04] MEDS: Ensure HIGH Protein Vanilla 8oz Bottle PO SCH (18:00)
[2024-10-04 20:00] VITALS: PULSE 79
[2024-10-04 21:00] VITALS: BP 100/61; PULSE 80; RESP 20; TEMP 97.4; O2SAT 96
[2024-10-05] VITALS (9 sets, daily range): BP systolic 107–134; BP diastolic 43–73; PULSE 66–90; RESP 18–20; TEMP 97.3–98.2; O2SAT 96–100
[2024-10-05] MEDS: LEVOTHYROXINE SODIUM 88 MCG TAB PO SCH (05:50)
[2024-10-05 07:01] LABS: Basophils # (auto) 0 10 ^3/uL (0-0.2); Basophils % (auto) 0.2 % (0.0-2.0); Eosinophils # (auto) 0.1 10 ^3/uL (0-0.8); Eosinophils % (auto) 0.7 % (0.0-7.0); Hematocrit 36.2 % (36.0-46.0); Hemoglobin 12.2 g/dL (12.2-16.2); Lymphocytes # (auto) 1.2 10 ^3/uL (0.4-5.4); Lymphocytes % (auto) 15.8 % (10.0-50.0); Mean Corpuscular Hemoglobin 30.5 pg (28.0-32.0); Mean Corpuscular Hgb Conc. 33.6 g/dL (32.0-36.0); Monocytes # (auto) 0.6 10 ^3/uL (0-1.3); Neutrophils # (auto) 5.5 10 ^3/uL (1.6-8.6); Neutrophils % (auto) 75.3 % (37.0-80.0); Nucleated Red Blood Cells % 0.1 %; Platelet Count (auto) 257 10^3/uL (140-450); Red Blood Cells 3.98 10^6/uL (4.0-5.20); Red Cell Distribution Width 13.8 % (11.8-14.3); White Blood Cell 7.3 10^3/uL (4.4-10.8)
[2024-10-05 07:27] LABS: Alkaline Phosphatase 70 U/L (46-116); Anion Gap 6 (5-15); BUN/Creatinine Ratio 35.2 (10.0-20.0); Calcium 9.3 mg/dL (8.7-10.4); Carbon Dioxide 28 mmol/L (20-31); Glucose 84 mg/dL (74-106); Potassium 3.6 mmol/L (3.5-5.1); Sodium 144 mmol/L (136-145)
[2024-10-05 07:29] LABS: Alanine Aminotransferase 80 U/L (7-40); Albumin 3.6 g/dL (3.2-4.8); Aspartate Aminotransferase 97 U/L (13-40); Bilirubin, Total 0.9 mg/dL (0.2-1.0); Blood Urea Nitrogen 25 mg/dL (9-23); Chloride 110 mmol/L (98-107); Total Protein 5.6 g/dL (5.7-8.2)
[2024-10-05] MEDS: MULTIPLE VITAMIN TAB PO SCH (08:52)
[2024-10-05] MEDS: POTASSIUM PHOSPHATE 26.4 MEQ in SODIUM CHL 0.9% 100 ML IV ONE ×2 (11:00→20:49)
--- NOTE | 2024-10-05 14:56 | DVHSR ---
APPROVED REPORT EXAM: LIMITED Two-dimensional and M-mode echocardiogram with Doppler and color Doppler. Blood Pressure: 123/63 mmHg INDICATION Troponinemia RISK FACTORS Height: 5'0", Weight: 88 DIMENSIONS LVDd (3.8-5.7cm)LA (2D)4.3 (1.9-4.0cm)Aortic Root (2.0-3.7cm) EF (%) 60.0 (55-70%)Rt. Atrium3.6 (1.9-4.0cm)Asc. Aorta cm Mitral Valve MitralMitral Stenosis E wave1.25m/sMV Mean GR.mmHg A wave1.24m/sMV Peak GR.mmHg E/A ratio1.02D MVAcm2 DECEL [id number] 1/2 Timems Aortic Valve Aortic ValveAortic Stenosis V11.44m/Mason Mean GR.5mmHg V21.36m/Mason Peak GR.7mmHg LVOT Diameter1.7 (1.8-2.4cm)Doppler AVA2.40cm2 Pulmonic Valve V20.99m/s Tricuspid Valve TR Velocity2.45m/s [id number] LEFT VENTRICLE Normal left ventricular size. Wall thickness is normal. Ejection fraction is normal is estimated at 60-65%. No regional wall motion abnormalities. There is grade II diastolic dysfunction. E to E pr soo ratio is more than15 suggestive of elevated left-sided filling pressure. RIGHT VENTRICLE The right ventricle is of normal size. Right ventricular systolic function is normal. ATRIA The left atrium is mildly dilated in size. The right atrium is of normal size. There is mobile structure visualized in the right atrium that sol west represents prominent eustachian valve. Appears to be normal. MITRAL VALVE Normal structure and function. PULMONIC VALVE Likely normal. TRICUSPID VALVE Normal structure and function. There is trace tricuspid regurgitation. PA systolic pressure is olesya mated at 27 mm Hg. AORTIC VALVE Normal structure and function. GREAT VESSELS Not well visualized. PERICARDIAL EFFUSION No pericardial effusion. IVC is of normal size and collapses normally with inspiration. Other Information Quality : Technically LimitedRhythm : Technically limited study due to body habitus. Conclusion The study is technically limited. Normal left ventricular size and systolic function. Ejection fraction is estimated at 60-65%. There is grade II diastolic dysfunction with evidence of elevated left-sided filling pressure. Normal right ventricular size and systolic function. No hemodynamically significant valvular disease. There is a mobile structure in the right atrium that could represent a prominent eustachian valve. C linical correlation needed. PA systolic pressure is estimated at 27 mm Hg.
[2024-10-05 16:20] LABS: Hepatitis A Ab IgM Negative; Hepatitis B Core IgM Negative (Negative); Hepatitis B Surface Antigen Negative (Negative); Hepatitis C Antibody Negative (Negative)
--- NOTE | 2024-10-05 20:06 | DVHPN2 ---
Subjective 10/05 - patient doing well. imprved. PT today. 10/04-patient doing better, improving. Patient did also have a fall, she has a wound on left frontal cranium region. She declines any loss of consciousness. Unclear cause of fall. Reviewed: H&P Changes from previous H/P or p: No Changes General: Per HPI Objective Vitals Vital Signs Date Time Temp Pulse Resp B/P (MAP) Pulse Ox O2 Delivery O2 Flow Rate FiO2 10/05/24 17:00 98.0 80 18 119/62 (81) 97 98.0 10/05/24 08:00 Room Air* 0 21 Intake/Output Intake and Output 10/05/24 07:00 Intake Total 550 ml Output Total 0 ml Balance 550 ml Intake Oral 350 ml IV Total 200 ml Output Urine Total 0 ml # Voids 1 # Bowel Movements 1 Exam GEN: Severely cachectic, malnutrition and appearing. HEENT: Has laceration to left frontal cranium. dry mucous membranes CV: RRR, no m/r/g. LUNGS: CTAB, no w/r/c. ABD: Soft, NT/ND, NBS, no masses or organomegaly. EXT: skin Warm, well perfused. no rashes. No clubbing, cyanosis, or edema. NEURO: Ambulating with no limitations. No focal deficits. Alert and oriented times 3-4 Medications Current Medications Medications Dose Ordered Sig/Hayley Route Start Time Stop Time Status Last Admin Dose Admin Ibuprofen 600 mg Q6HP PRN PO 10/04/24 01:15 Aspirin 81 mg DAILY PO 10/04/24 10:00 10/05/24 08:51 81 MG Sodium Chloride 10 ml Q8HR IV 10/04/24 06:00 10/05/24 17:35 10 ML Acetaminophen/ Hydrocodone Bitart 1 tab Q4HP PRN PO 10/04/24 01:15 Ondansetron HCl 4 mg Q4HP PRN IV 10/04/24 01:15 Docusate Sodium 100 mg BIDPRN PRN PO 10/04/24 01:15 Acetaminophen 650 mg Q6HP PRN PO 10/04/24 01:15 Nitroglycerin 0.4 mg Q5MINP PRN SL 10/04/24 01:30 Morphine Sulfate 2 mg Q30M PRN IV 10/04/24 01:30 Dextrose 50 ml UD PRN IV 10/04/24 10:15 Levothyroxine Sodium 88 mcg QAM@0600 PO 10/05/24 06:00 10/05/24 05:50 88 MCG Enteral Nutritional Formula 240 ml BIDWM PO 10/04/24 18:00 10/05/24 18:00 240 ML Multivitamins 1 tab DAILY PO 10/05/24 10:00 10/05/24 08:52 1 TAB Mirtazapine 15 mg HS PO 10/05/24 22:00 Laboratory Results Laboratory Tests 10/05/24 05:57 Chemistry Test 10/05/24 05:57 Albumin 3.6 g/dL (3.2-4.8) Calcium Level 9.3 mg/dL (8.7-10.4) Magnesium Level 2.0 mg/dL (1.6-2.6) Phosphorus Level 2.0 mg/dL (2.4-5.1) L Total Protein 5.6 g/dL (5.7-8.2) L LFT Test 10/05/24 05:57 Alanine Aminotransferase (ALT) 80 U/L (7-40) H Alkaline Phosphatase 70 U/L (46-116) Aspartate Amino Transferase (AST) 97 U/L (13-40) H Total Bilirubin 0.9 mg/dL (0.2-1.0) Urinalysis Test 10/03/24 21:26 Urine Color Yellow (Yellow) Urine Clarity Clear (Clear) Urine pH 5.5 (5.0-9.0) Urine Specific [place] 1.030 (1.001-1.035) Urine Protein 1+ (Negative) H Urine Ketones 2+ (Negative) H Urine Blood Negative /uL (Negative) Urine Nitrite Negative (Negative) Urine Bilirubin Negative (Negative) Urine Urobilinogen Normal mg/dL (Negative) Urine Leukocyte Esterase Negative /uL (Negative) Urine RBC 1 /hpf (0 - 4) Urine WBC 2 /hpf (0 - 5) Urine Squamous Epithelial Cells Few /hpf (<5) Urine Bacteria None seen /hpf (None Seen) Urine Mucus Few (None Seen) Urine Glucose 3+ mg/dL (Normal) H Labs and/or images reviewed: Labs reviewed by me, Image(s) reviewed by me Assessment/Plan Assessment/Plan # Severe malnutrition, protein calorie deficit- consult dietitian, start high- protein supplements with meals b.i.d.. # Physical deconditioning - PT rec SNF for PT rehab- social consulted - pending placement # decreased p.o. intake/intravascular volume depletion SG 1.030 on UA, has ketones +2. Patient endorses decreased p.o. intake. We will likely need appetite stimulant, we will start mirtazapine. # Weakness - pending B12, orthostatics signs NEG, # risk of refeeding syndrome.- we will monitor Mag phos BMP daily # Head trauma, ruled out intracranial bleed CT head negative for intracranial bleed. # Hypoglycemia, resolved-on 10/04 noting blood glucose low in 50s. We will continue a.c. HS Accu-Cheks to keep blood glucose more than 90 #hypophos- refeeding? vs deficiency? #transaminitis RUQ U/S is negative for acute process, positive for cholelithiasis, might right renal pelvis fullness. No hepatomegaly no hepato steatosis. Unclear cause of transaminitis. acute viral hepatitis panel NEG # NSTEMI, likely type 2, type 1 less likely - likely type 2, no cardiac history. no chest pain. echo below,. # ACS unlikely-patient never had chest pain. NSTEMI likely type 2. ACS unlikely. Echo EF 60-65%.. gr2 LVDD. w elevated left-sided filling pressure. can stop aspirin 81 daily. # History of hypothyroidism - continue home dose Synthroid 88 mcg. TSH elevated, free T4 wnl - subclinical hypothyroid labs, adjust outpt w PCP. # Chronic Hypertension-patient takes antihypertensives at home, we will hold off BP meds is at goal without medications. Diet regular, high-protein supplement with meals b.i.d. DVT prophylaxis - ambulating. GI prophylaxis tolerating diet Med tele Full code Plan discussed with: Patient My Orders Orders - DION JARRETT MD Procedure Category Date Status Time * Lead Injection Mold Technician CONS 10/05/24 Transmitted Consult Electrocardigram EKG 10/05/24 Logged 11:14 Echo 2d Mode Cardiac US 10/05/24 Resulted DOP 11:16 Mirtazapine Tablet PHA 10/05/24 In Process (Remeron Tablet) 22:00 * Lead Injection Mold Technician CONS 10/05/24 Transmitted Consult Potassium Phosphate PHA 10/05/24 In Process 19:30 Date of Service: Oct 05, 2024 Billing Provider: DION JARRETT MD Common Visit Codes: [id number] INP/OBS CARE(HIGH) DION JARRETT MD Oct 05, 2024 20:06
[2024-10-05] MEDS: MIRTAZAPINE 30 MG TAB PO SCH (21:51)
[2024-10-06] VITALS (7 sets, daily range): BP systolic 113–157; BP diastolic 54–76; PULSE 76–87; RESP 16–18; TEMP 97.8–98.8; O2SAT 95–98
[2024-10-06 08:25] LABS: Albumin 3.9 g/dL (3.2-4.8); Alkaline Phosphatase 78 U/L (46-116); Anion Gap 8 (5-15); BUN/Creatinine Ratio 26.2 (10.0-20.0); Blood Urea Nitrogen 16 mg/dL (9-23); Calcium 9.7 mg/dL (8.7-10.4); Carbon Dioxide 29 mmol/L (20-31); Glucose 78 mg/dL (74-106); Potassium 3.6 mmol/L (3.5-5.1); Sodium 144 mmol/L (136-145)
[2024-10-06 08:26] LABS: Bilirubin, Total 0.8 mg/dL (0.2-1.0); Total Protein 6.1 g/dL (5.7-8.2)
[2024-10-06 08:37] LABS: Alanine Aminotransferase 85 U/L (7-40); Aspartate Aminotransferase 88 U/L (13-40); Chloride 107 mmol/L (98-107); Phosphorus 2.3 mg/dL (2.4-5.1)
--- NOTE | 2024-10-06 16:58 | DVHPN2 ---
Subjective 10/06 pt stable. labs stable. no other identifable reversible cause of weakness and weakness resolving. patient remains goo dcandidtate for PT in rehab cetner at a local snf. pending snf placement. social aware today. 10/05 - patient doing well. imprved. PT today. 10/04-patient doing better, improving. Patient did also have a fall, she has a wound on left frontal cranium region. She declines any loss of consciousness. Unclear cause of fall. Reviewed: H&P Changes from previous H/P or p: No Changes General: Per HPI Objective Vitals Vital Signs Date Time Temp Pulse Resp B/P (MAP) Pulse Ox O2 Delivery O2 Flow Rate FiO2 10/06/24 13:11 97.9 79 16 113/59 (77) 97 97.9 10/06/24 08:00 Room Air* 0 21 Intake/Output Intake and Output 10/06/24 07:00 Intake Total 1828 ml Output Total 600 ml Balance 1228 ml Intake Oral 1828 ml Output Urine Total 600 ml # Voids 2 Exam GEN: cachectic, malnutrition and appearing. HEENT: Has laceration to left frontal cranium. moist mucous membranes CV: RRR, no m/r/g. LUNGS: CTAB, no w/r/c. ABD: Soft, NT/ND, NBS, no masses or organomegaly. EXT: skin Warm, well perfused. no rashes. No clubbing, cyanosis, or edema. NEURO: Ambulating with no limitations. No focal deficits. Alert and oriented times 3-4 Medications Current Medications Medications Dose Ordered Sig/Hayley Route Start Time Stop Time Status Last Admin Dose Admin Ibuprofen 600 mg Q6HP PRN PO 10/04/24 01:15 Aspirin 81 mg DAILY PO 10/04/24 10:00 10/06/24 10:34 81 MG Sodium Chloride 10 ml Q8HR IV 10/04/24 06:00 10/06/24 14:00 10 ML Acetaminophen/ Hydrocodone Bitart 1 tab Q4HP PRN PO 10/04/24 01:15 Ondansetron HCl 4 mg Q4HP PRN IV 10/04/24 01:15 Docusate Sodium 100 mg BIDPRN PRN PO 10/04/24 01:15 Acetaminophen 650 mg Q6HP PRN PO 10/04/24 01:15 Nitroglycerin 0.4 mg Q5MINP PRN SL 10/04/24 01:30 Morphine Sulfate 2 mg Q30M PRN IV 10/04/24 01:30 Dextrose 50 ml UD PRN IV 10/04/24 10:15 Levothyroxine Sodium 88 mcg QAM@0600 PO 10/05/24 06:00 10/05/24 05:50 88 MCG Enteral Nutritional Formula 240 ml BIDWM PO 10/04/24 18:00 10/06/24 10:34 240 ML Multivitamins 1 tab DAILY PO 10/05/24 10:00 10/06/24 10:34 1 TAB Mirtazapine 15 mg HS PO 10/05/24 22:00 10/05/24 21:51 15 MG Laboratory Results Laboratory Tests 10/05/24 05:57 10/06/24 06:42 Chemistry Test 10/06/24 06:42 Albumin 3.9 g/dL (3.2-4.8) Calcium Level 9.7 mg/dL (8.7-10.4) Magnesium Level 2.0 mg/dL (1.6-2.6) Phosphorus Level 2.3 mg/dL (2.4-5.1) L Total Protein 6.1 g/dL (5.7-8.2) LFT Test 10/06/24 06:42 Alanine Aminotransferase (ALT) 85 U/L (7-40) H Alkaline Phosphatase 78 U/L (46-116) Aspartate Amino Transferase (AST) 88 U/L (13-40) H Total Bilirubin 0.8 mg/dL (0.2-1.0) Urinalysis Test 10/03/24 21:26 Urine Color Yellow (Yellow) Urine Clarity Clear (Clear) Urine pH 5.5 (5.0-9.0) Urine Specific [place] 1.030 (1.001-1.035) Urine Protein 1+ (Negative) H Urine Ketones 2+ (Negative) H Urine Blood Negative /uL (Negative) Urine Nitrite Negative (Negative) Urine Bilirubin Negative (Negative) Urine Urobilinogen Normal mg/dL (Negative) Urine Leukocyte Esterase Negative /uL (Negative) Urine RBC 1 /hpf (0 - 4) Urine WBC 2 /hpf (0 - 5) Urine Squamous Epithelial Cells Few /hpf (<5) Urine Bacteria None seen /hpf (None Seen) Urine Mucus Few (None Seen) Urine Glucose 3+ mg/dL (Normal) H Labs and/or images reviewed: Labs reviewed by me, Image(s) reviewed by me Assessment/Plan Assessment/Plan 10/06 pt stable. labs stable. no other identifable reversible cause of weakness and weakness resolving. patient remains goo dcandidtate for PT in rehab cetner at a local snf. pending snf placement. social aware today. # Severe malnutrition, protein calorie deficit- consult dietitian, start high- protein supplements with meals b.i.d.. # Physical deconditioning - PT rec SNF for PT rehab- social consulted - pending placement # decreased p.o. intake/intravascular volume depletion SG 1.030 on UA, has ketones +2. Patient endorses decreased p.o. intake. We will likely need appetite stimulant, we will start mirtazapine. # Weakness - pending B12, orthostatics signs NEG, # risk of refeeding syndrome.- we will monitor Mag phos BMP daily # Head trauma, ruled out intracranial bleed CT head negative for intracranial bleed. # Hypoglycemia, resolved-on 10/04 noting blood glucose low in 50s. We will continue a.c. HS Accu-Cheks to keep blood glucose more than 90 #hypophos- refeeding? vs deficiency? #transaminitis RUQ U/S is negative for acute process, positive for cholelithiasis, might right renal pelvis fullness. No hepatomegaly no hepato steatosis. Unclear cause of transaminitis. acute viral hepatitis panel NEG # NSTEMI, likely type 2, type 1 less likely - likely type 2, no cardiac history. no chest pain. echo below,. # ACS unlikely-patient never had chest pain. NSTEMI likely type 2. ACS unlikely. Echo EF 60-65%.. gr2 LVDD. w elevated left-sided filling pressure. can stop aspirin 81 daily. # History of hypothyroidism - continue home dose Synthroid 88 mcg. TSH elevated, free T4 wnl - subclinical hypothyroid labs, adjust outpt w PCP. # Chronic Hypertension-patient takes antihypertensives at home, we will hold off BP meds is at goal without medications. Diet regular, high-protein supplement with meals b.i.d. DVT prophylaxis - ambulating. GI prophylaxis tolerating diet Med tele Full code Plan discussed with: Patient My Orders Orders - DION JARRETT MD Procedure Category Date Status Time Transfer Orders XFER 10/06/24 Transmitted 09:57 Discontinue Tele JIHAN 10/06/24 In Process 09:57 Date of Service: Oct 06, 2024 Billing Provider: DION JARRETT MD Common Visit Codes: [id number] INP/OBS CARE(MOD) DION JARRETT MD Oct 06, 2024 16:58
[2024-10-07 01:23] VITALS: BP 115/49; PULSE 71; RESP 16; TEMP 97.7; O2SAT 96
[2024-10-07 05:30] VITALS: BP 115/59; PULSE 70; RESP 16; TEMP 97.6; O2SAT 97
[2024-10-07 08:00] VITALS: PULSE 83; RESP 16; O2SAT 100
[2024-10-07 09:01] VITALS: BP 128/65; PULSE 83; RESP 16; TEMP 98; O2SAT 100
--- NOTE | 2024-10-07 09:40 | DVHDS2 ---
Discharge Summary Date of Admission Oct 04, 2024 at 01:25 Date of Discharge: Oct 07, 2024 Admitting Diagnosis weakness Labs/Diagnostic Data: Laboratory Results Test 10/06/24 06:42 10/05/24 08:55 10/05/24 05:57 10/04/24 15:50 Sodium Level 144 mmol/L (136-145) Potassium Level 3.6 mmol/L (3.5-5.1) Chloride Level 107 mmol/L (98-107) Carbon Dioxide Level 29 mmol/L (20-31) Anion Gap 8 (5-15) Blood Urea Nitrogen 16 mg/dL (9-23) Creatinine 0.61 mg/dL (0.550-1.02) Glomerular Filtration Rate Calc 91 mL/min (>90) BUN/Creatinine Ratio 26.2 (10.0-20.0) Serum Glucose 78 mg/dL (74-106) Calcium Level 9.7 mg/dL (8.7-10.4) Phosphorus Level 2.3 mg/dL (2.4-5.1) Magnesium Level 2.0 mg/dL (1.6-2.6) Total Bilirubin 0.8 mg/dL (0.2-1.0) Aspartate Amino Transferase (AST) 88 U/L (13-40) Alanine Aminotransferase (ALT) 85 U/L (7-40) Alkaline Phosphatase 78 U/L (46-116) Total Protein 6.1 g/dL (5.7-8.2) Albumin 3.9 g/dL (3.2-4.8) POC Glucose 92 mg/dl (70-106) White Blood Count 7.3 10^3/uL (4.4-10.8) Red Blood Count 3.98 10^6/uL (4.0-5.20) Hemoglobin 12.2 g/dL (12.2-16.2) Hematocrit 36.2 % (36.0-46.0) Mean Corpuscular Volume 91.0 fL (80.0-100.0) Mean Corpuscular Hemoglobin 30.5 pg (28.0-32.0) Mean Corpuscular Hemoglobin Concent 33.6 g/dL (32.0-36.0) Red Cell Distribution Width 13.8 % (11.8-14.3) Platelet Count 257 10^3/uL (140-450) Mean Platelet Volume 7.5 fL (6.9-10.8) Neutrophils (%) (Auto) 75.3 % (37.0-80.0) Lymphocytes (%) (Auto) 15.8 % (10.0-50.0) Monocytes (%) (Auto) 8.0 % (0.0-12.0) Eosinophils (%) (Auto) 0.7 % (0.0-7.0) Basophils (%) (Auto) 0.2 % (0.0-2.0) Neutrophils # (Auto) 5.5 10 ^3/uL (1.6-8.6) Lymphocytes # (Auto) 1.2 10 ^3/uL (0.4-5.4) Monocytes # (Auto) 0.6 10 ^3/uL (0-1.3) Eosinophils # (Auto) 0.1 10 ^3/uL (0-0.8) Basophils # (Auto) 0 10 ^3/uL (0-0.2) Nucleated Red Blood Cells 0.1 % Vitamin B12 Level 1496 pg/mL (211-911) Free Thyroxine (T4) Calculated 1.03 ng/dL (0.89-1.76) Test 10/04/24 12:40 10/04/24 12:39 10/04/24 06:04 10/03/24 21:26 Influenza Type A Antigen Negative (Negative) Influenza Type B Antigen Negative (Negative) SARS-CoV-2 Antigen (Rapid) Negative (NEGATIVE) Thyroid Stimulating Hormone (TSH) 8.35 uIU/mL (0.55-4.78) Hepatitis A IgM Antibody Negative Hepatitis B Surface Antigen Negative (Negative) Hepatitis B Core IgM Antibody Negative (Negative) Hepatitis C Antibody Negative (Negative) Urine Color Yellow (Yellow) Urine Clarity Clear (Clear) Urine pH 5.5 (5.0-9.0) Urine Specific [place] 1.030 (1.001-1.035) Urine Protein 1+ (Negative) Urine Ketones 2+ (Negative) Urine Blood Negative /uL (Negative) Urine Nitrite Negative (Negative) Urine Bilirubin Negative (Negative) Urine Urobilinogen Normal mg/dL (Negative) Urine Leukocyte Esterase Negative /uL (Negative) Urine RBC 1 /hpf (0 - 4) Urine WBC 2 /hpf (0 - 5) Urine Squamous Epithelial Cells Few /hpf (<5) Urine Bacteria None seen /hpf (None Seen) Urine Mucus Few (None Seen) Urine Glucose 3+ mg/dL (Normal) Test 10/03/24 20:34 10/03/24 17:31 Troponin I High Sensitivity 47 ng/L (</=34) Prothrombin Time 10.9 sec (9.3-11.8) Prothrombin Time INR 1.03 (0.9-1.15) Activated Partial Thromboplast Time 26.4 SEC (24.5-34.5) D-Dimer, Quantitative 0.57 mg/L FEU (0.0-0.49) B-Type Natriuretic Peptide 88.68 pg/mL (0-100) Other Laboratory Tests 10/06/24 06:42 10/05/24 05:57 Brief Hx & Hospital Course: HPI: 79-year-old female who denies past medical history presented to [facility] ED for evaluation of generalized weakness. As reported, patient's friend called EMS reporting change in patient's condition, unable to get up, walk, progressive weakness, getting worse that prompted this visit. hospitalization: pt had fall with headtrauma at home few days prior, CT head negative for acute processes. UA shows SG 1.030 with plus two ketones. She endorsed decreased p.o. intake. She only eats one microwave meals a day and her Macrobid recently broke down. On exam she looks severely malnutrition, BMI 18.3. flu/covid neg. To have some hypoglycemia down to 50s and is resuscitated with D5 half NS. She has a NSTEMI, likely type, echo EF 60-65% with grade 2 left ventricle diastolic dysfunction, type one NSTEMI unlikely. Remain on telemetry for approximately 48 hours, tele was unconcerning during this time. Orthostatics are negative. Provide labs suggest subclinical hypothyroid and continued her Synthroid home dose. Blood pressure medications were held off as blood pressure is at goal during hospitalization. Noted to have mild LFT rise, RUQ ultrasound shows cholelithiasis but no acute process. Acute viral hepatitis panel was also negative. Given patient's severe malnutrition and cachectic appearance restarted mirtazapine and high-calorie nutritional supplements twice daily. Mild hypophosphatemia noted after resuscitation of nutrition. Labs are not deranged, refeeding syndrome unlikely. PT evaluated and recommend PT rehab SNF. assessment services manager consulted for sniff. Patient stable for discharge. Discharge diagnosis: Severe protein calorie malnutrition; physical deconditioning; poor p.o. intake; head trauma, intracranial hemorrhage ruled out; refeeding syndrome, ruled out; hypoglycemia, resolved; hypophosphatemia; transaminitis; type 2 NSTEMI; hypothyroidism; history of hypertension; grade 2 left ventricular dystolic dysfunction; discharge plan: - DC to snf for PT rehab (when facility and bed available) - start to mirtazepine 7.5mg qhs - increase PO intake with meal-supplement (high-haydee, high-protein) 2x/day with meals - stop BP medications - continue home synthroid dose. continue other home medications not mentioned above. Condition at Discharge: Fair Final Diagnosis/Problems List Severe protein calorie malnutrition; physical deconditioning; poor p.o. intake; head trauma, intracranial hemorrhage ruled out; refeeding syndrome, ruled out; hypoglycemia, resolved; hypophosphatemia; transaminitis; type 2 NSTEMI; hypothyroidism; history of hypertension; grade 2 left ventricular dystolic dysfunction; Discharge Disposition: Assisted Facility Discharge Statement: "Patient was advised to return to the ER or call 911 if any headaches, dizziness, shortness of breath, chest pain, abdominal pain, bleeding, fevers, or worsening of medical condition. Patient was counseled about treatment plan, medications, possible side effects, patientverbalized understanding. All questions were answered to the best of my ability. This discharge took greater then 30 minutes in planning, reviewing documentation, counseling the patient, and discussing with other team members." ASSESSMENT ASSESSMENT Assessment Date of Service: Oct 07, 2024 Billing Provider: DION JARRETT MD Common Visit Codes: 60828-TSK/OBS DISCH DAY >30min DION JARRETT MD Oct 07, 2024 09:40
[2024-10-07 12:00] VITALS: BP 89/46; PULSE 90; RESP 14; TEMP 98.1; O2SAT 97
[2024-10-07 17:00] VITALS: BP 97/42; PULSE 87; RESP 14; TEMP 98.1; O2SAT 99
[2024-10-07] MEDS ORDERED: MIRTAZAPINE 30 MG TAB PO SCH (22:00)
== END 2024-10-07 18:13 | DRG 640 ==
LOC: EDBD 16:46 → ER 16:46 → TELE 10-04 01:25 → TELE-CENTR 10-04 13:25 → CENTRAL 10-07 15:42
PROVIDERS: ADMIT Student in an Organized Health Care Education/Training Program; ATTEND Student in an Organized Health Care Education/Training Program
DX: E16.2 Hypoglycemia, unspecified (principal); E43 Unspecified severe protein-calorie malnutrition; I21.A1 Myocardial infarction type 2; G93.41 Metabolic encephalopathy; Z68.1 Body mass index [BMI] 19.9 or less, adult; E86.9 Volume depletion, unspecified; Z20.822 Contact with and (suspected) exposure to COVID-19; I10 Essential (primary) hypertension; K80.20 Calculus of gallbladder without cholecystitis without obstruction; R74.01 Elevation of levels of liver transaminase levels; E03.8 Other specified hypothyroidism; E83.39 Other disorders of phosphorus metabolism; Z88.0 Allergy status to penicillin; Z79.82 Long term (current) use of aspirin; Z79.899 Other long term (current) drug therapy
CPT/HCPCS: 36415; 70450; 71045; 71250; 76705; 80053; 80074; 81001; 82607; 82962; 83735; 83880; 84100; 84439; 84443; 84484; 85025; 85379; 85610; 85730; 87426; 87804; 93005; 93306; 96360; 97116; 97163; 97530; G0378